=== PATIENT | female | born 1950 | race Two or more races ===

== ENCOUNTER 2025-03-10 07:10 | Inpatient (IN) | payer OTHER ==
[~2025-03-10] VITALS: Ht 167.6 cm; Wt 63.5 kg
[2025-03-10] MEDS ORDERED: ARICEPT5 MG (08:03)
--- NOTE | 2025-03-10 08:05 | NUR ---
PTE ALERTA Y DESORIENTADA PTE DE ANHAIMER VIENE CON REFERIDO DE DR. LEE BENDEDICTO, PARA ADMISION SE LE ALBA S/V Y SE UBICA.
[2025-03-10] MEDS ORDERED: PANTOPRAZOLE SODIUM 40 MG/VIAL VIAL IV PUSH SCH (09:42)
[2025-03-10] MEDS ORDERED: CIPROFLOXACIN IN 5 % DEXTROSE 200 ML IV SCH (09:43)
[2025-03-10] MEDS ORDERED: METRONIDAZOLE/SODIUM CHLORIDE 100 ML IV SCH (09:43)
[2025-03-10] MEDS ORDERED: HYOSCYAMINE SULFATE 0.125 MG TAB.SUBL SL PRN (09:45)
[2025-03-10] MEDS ORDERED: ACETAMINOPHEN 500 MG GEL..CAP PO PRN (09:45)
[2025-03-10] MEDS ORDERED: METHYLPREDNISOLONE SOD SUCC 125 MG VIAL IV SCH (09:45)
[2025-03-10] MEDS ORDERED: DIPHENHYDRAMINE HCL 50 MG/ML VIAL 1ML IV ONE (09:45)
[2025-03-10] MEDS ORDERED: 0.9 % SODIUM CHLORIDE 1,000 ML IV SCH (09:45)
[2025-03-10] MEDS ORDERED: ALPRAzolam 0.25 MG TABLET PO SCH (09:48)
[2025-03-10] MEDS ORDERED: LACTOBACILLUS ACIDOPHILUS 1 CAP CAP PO SCH (09:50)
[2025-03-10] MEDS ORDERED: LACTOBACILLUS ACIDOPHILUS 1 CAP CAP PO ONE (12:37)
[2025-03-10] MEDS ORDERED: DIPHENHYDRAMINE HCL 50 MG/ML VIAL 1ML ONE (12:38)
[2025-03-10] MEDS ORDERED: CIPROFLOXACIN IN 5 % DEXTROSE 400 MG/200 ML PIGGYBAG IV ONE (12:38)
[2025-03-10] MEDS ORDERED: METRONIDAZOLE/SODIUM CHLORIDE 500 MG/100 ML PIGGYBACK IV ONE (12:39)
[2025-03-10] MEDS ORDERED: METHYLPREDNISOLONE SOD SUCC 125 MG VIAL ONE (12:39)
[2025-03-10 12:54] LABS: BASO % 0.8 % (0.1-1.2); EOS # 0.05 (0.04-0.54); EOS % 0.8 % (0.7-7.0); HEMATOCRIT 36.3 % (34.1-44.9); HEMOGLOBIN 11.9 g/dL (11.2-15.7); LYMPH # 1.54 (1.18-3.74); MEAN CORPUSCULAR HEMOGLOBIN 27.6 pg (25.6-32.2); MONO # 0.36 (0.24-0.82); MONO % 5.6 % (4.7-12.5); NEUT % 68.6 % (34.0-71.1); PLATELET COUNT 303 K/uL (163-369); RED BLOOD COUNT 4.31 M/uL (3.93-5.22); RED CELL DISTRIBUTION WIDTH 13.3 % (11.6-14.4)
[2025-03-10 12:56] LABS: ALKALINE PHOSPHATASE 86 U/L (50-136); ALT/SGPT 23 U/L (12-78); AST/SGOT 23 U/L (15-37); BILIRUBIN TOTAL 2.35 mg/dL (0.3-1.2); BLOOD UREA NITROGEN 13 mg/dL (7-18); BUN CREA RATIO 21 (7.0-25.0); CALCIUM 9.2 mg/dL (8.5-10.1); CARBON DIOXIDE 21 mEq/L (21-32); CHLORIDE 107 mmol/L (98-107); CREATININE SERUM 0.61 mg/dL (0.55-1.02); GFR 95.88; GLOBULINA 3.4 G/DL (2.4-3.5); GLUCOSE FASTING 65 mg/dL (65-100); TOTAL PROTEIN 7.4 gm/dL (6.4-8.2)
[2025-03-10 13:08] LABS: ANION GAP 13 (10.0-20.0); LDH 184 U/L (84-246); OSMOLALITY SERUM 274 MOSM/KG (275-295); POTASSIUM 3.18 mEq/L (3.5-5.1); SODIUM 138 mmol/L (136-145)
[2025-03-10 13:09] LABS: C-REACTIVE PROTEIN < 0.29 MG/DL (0.00-0.29)
[2025-03-10 13:22] LABS: INFLUENZA A AG NEGATIVE (NEGATIVE); INFLUENZA B AG NEGATIVE (NEGATIVE)
[2025-03-10 14:42] LABS: ABG PH 7.357 (7.35-7.45); ABG PO2 94.3 mmHg (80-100); ABG pCO2 30.3 mmHg (35-45); BASE EXCESS -7.4 mmol/l; BICARBONATE 16.6 mmol/l (23-25); SaO2 96.7 %; Tco2 17.6 mmol/l; allen test SATISFACTORY; mode ROOM AIR; o2 21 %; puncture site RADIAL RIGHT
[2025-03-10 16:07] VITALS: BP 143/83; O2SAT 98
[2025-03-10 16:53] VITALS: BP 165/70; O2SAT 97
[2025-03-10] MEDS ORDERED: POTASSIUM CHLORIDE IN WATER 100 ML IV SCH (17:00)
[2025-03-10] MEDS ORDERED: RISPERIDONE 0.5 MG TABLET PO SCH (21:00)
[2025-03-10 23:12] LABS: ABG PH 7.359 (7.35-7.45); ABG pCO2 39.5 mmHg (35-45); SaO2 95.9 %
[2025-03-10 23:14] LABS: BASE EXCESS -3.3 mmol/l; BICARBONATE 21.8 mmol/l (23-25); allen test SATISFACTORY; mode ROOM AIR; o2 21 %; puncture site RADIAL RIGHT
[2025-03-10 23:15] LABS: ABG PO2 86.1 mmHg (80-100)
[2025-03-11 02:04] VITALS: BP 132/71; O2SAT 97
[2025-03-11 06:16] LABS: BASO % 0.1 % (0.1-1.2); EOS # 0.02 (0.04-0.54); EOS % 0.3 % (0.7-7.0); HEMOGLOBIN 11.7 g/dL (11.2-15.7); LYMPH # 0.78 (1.18-3.74); MEAN CORPUSCULAR HEMOGLOBIN 27.6 pg (25.6-32.2); MONO # 0.42 (0.24-0.82); MONO % 5.9 % (4.7-12.5); NEUT # 5.81 (1.56-6.13); NEUT % 82.4 % (34.0-71.1); RED BLOOD COUNT 4.24 M/uL (3.93-5.22); RED CELL DISTRIBUTION WIDTH 13.3 % (11.6-14.4)
[2025-03-11 06:46] LABS: ALBUMIN 3.7 gm/dL (3.4-5.0); BILIRUBIN TOTAL 1.8 mg/dL (0.3-1.2); BILIRUBIN,CONJUGATED 0.35 mg/dL (0.0-0.2); BILIRUBIN,UNCONJUGATED 1.45 mg/dL (0.0-0.6); CALCIUM 9.7 mg/dL (8.5-10.1); CHOL HDL RATIO 2.7 (0-5.0); CREATININE SERUM 0.63 mg/dL (0.55-1.02); GFR 92.37; PHOSPHOROUS 2.7 mg/dL (2.5-4.9); POTASSIUM 3.3 mEq/L (3.5-5.1); TOTAL PROTEIN 6.7 gm/dL (6.4-8.2); TSH 0.691 uIU/mL (0.358-3.74)
[2025-03-11 06:49] LABS: INR 1.09; PARTIAL THROMBOPLASTIN TIME 23.5 SECONDS (22.0-34.0); PROTHROMBIN TIME 11.8 SECONDS (9.0-11.5)
[2025-03-11 07:37] LABS: PLATELET COUNT 167 K/uL (163-369)
[2025-03-11 07:43] LABS: T4 FREE 1.69 NG/ML (0.76-1.46)
[2025-03-11] MEDS ORDERED: SODIUM CHLORIDE 0.45 % 1,000 ML IV SCH (08:45)
[2025-03-11 09:16] VITALS: BP 153/62; O2SAT 97
[2025-03-11 14:21] LABS: URINE APPEARANCE Clear; URINE BACTERIA 24.4 uL (0.0-1933); URINE BILIRRUBIN Negative (NEGATIVE); URINE BLOOD Negative; URINE COLOR Yellow; URINE EPITHELIAL CELLS 4.5 uL (0.0-38.8); URINE GLUCOSE Negative (NEGATIVE); URINE KETONE Negative (NEGATIVE); URINE LEUKOCYTE Trace; URINE NITRATE Negative; URINE PROTEIN Negative (NEGATIVE); URINE UROBILINOGEN 0.2 E.U./dl
[2025-03-11 14:50] LABS: URINE CAST 0.14 uL (0.0-1.40); URINE RBC 1.3 uL (0.0-20.8)
[2025-03-11 17:15] VITALS: BP 139/67; O2SAT 99
[2025-03-12 01:58] VITALS: BP 118/62; O2SAT 96
[2025-03-12 06:44] LABS: ALBUMIN 3.7 gm/dL (3.4-5.0); BILIRUBIN TOTAL 1.54 mg/dL (0.3-1.2); BILIRUBIN,CONJUGATED 0.37 mg/dL (0.0-0.2); BILIRUBIN,UNCONJUGATED 1.17 mg/dL (0.0-0.6); TOTAL PROTEIN 6.6 gm/dL (6.4-8.2)
[2025-03-12 08:00] VITALS: BP 170/62; O2SAT 97
[2025-03-12] MEDS ORDERED: ARICEPT5 MG PO (08:43)
[2025-03-12] MEDS ORDERED: HYOSCYAMINE0.125 M1 SL (08:43)
[2025-03-12] MEDS ORDERED: RISPERDAL0.5 MG PO (08:44)
[2025-03-12] MEDS ORDERED: INTESTINEX680 M1 PO (08:44)
[2025-03-12] MEDS ORDERED: SUCRALFATE1 GM/10 ML PO (08:45)
[2025-03-12] MEDS ORDERED: CIPRO500 MG PO (08:46)
[2025-03-12] MEDS ORDERED: METRONIDAZOLE250 MG PO (08:47)
== END 2025-03-12 10:43 | disposition home or self-care (01) | DRG 392 ==
LOC: ER 07:10 → SEC-K 10:08 → MEDI 10:08
PROVIDERS: Internal Medicine Infectious Disease; ADMIT Internal Medicine; ATTEND Internal Medicine
PROC: BW21YZZ Computerized Tomography (CT Scan) of Abdomen and Pelvis using Other Contrast (ICD-10-PCS; principal; 2025-03-10)
PROC: BW40ZZZ Ultrasonography of Abdomen (ICD-10-PCS; 2025-03-11)
DX: K52.9 Noninfective gastroenteritis and colitis, unspecified (principal); G30.9 Alzheimer's disease, unspecified; F02.80 Dementia in other diseases classified elsewhere, unspecified severity, without behavioral disturbance, psychotic disturbance, mood disturbance, and anxiety; E86.0 Dehydration; E87.6 Hypokalemia